=== PATIENT | female | born 1985 | race Caucasian/White ===

== ENCOUNTER 2019-07-02 00:48 | Day surgery (SDC) | payer OTHER, SELFPAY ==
[2019-06-27 13:55] VITALS: BMI 26.4
[2019-07-02 08:09] VITALS: BP 120/86; PULSE 75; RESP 18; TEMP 36.8; O2SAT 100
[2019-07-02] MEDS: LACTATED RINGERS 1,000 ML 150 ML IV CONT (08:14)
--- NOTE | 2019-07-02 08:21 | WPDANESEPPF ---
Anes - Initial Pre Proc Eval Procedure: Operation Date: 07/02/19 09:00 Proposed Procedures p Colonoscopy - Praful Allen MD Date/Time: 07/02/19 08:21 Surgeon: Praful Allen MD Pre Op Diagnosis: abd pain, rectal bleeding, hx of abn ct scan Patient Data Age: 33 Gender: F Height: 5 ft 5 in Weight: 77 kg Last Vital Signs Temp 36.8 C 07/02/19 08:09 Pulse 75 07/02/19 08:09 Resp 18 07/02/19 08:09 BP 120/86 07/02/19 08:09 Pulse Ox 100 07/02/19 08:09 Allergies Allergy/AdvReac Type Severity Reaction Status Date / Time Sulfa (Sulfonamide Allergy Unknown Verified 07/02/19 07:54 Antibiotics) Home Medications Medication Instructions Recorded Confirmed Type calcium carbonate [Calcium 500] 500 mg PO DAILY 06/27/19 07/02/19 History lamotrigine 50 mg PO DAILY 06/27/19 07/02/19 History Patient hx anesthesia problems: none Family hx anesthesia problems: none PMFSH Past Medical History Medical History Seizures Surgical History Surgical History No significant past surgical history Social History Social History Smoking status: Never smoker Anes - Eval Final PreProcedure Day of Procedure 07/02/19 08:21 Patient weight: overweight Heart: regular rate and rhythm Lungs: clear to auscultation Airway: Mallampati scale class II Neurological: alert and oriented Last oral intake: >/= 8 hours ASA classification: III Emergent: no Anesthetic plan: proceed Anesthesia type and monitoring: general GIVS and standard monitoring Informed Consent: The patient's anesthetic plan and its attendant risks and benefits were discussed with the patient/family/POA. Questions were solicited and answers provided to the satisfaction of the patient/family/POA.
--- NOTE | 2019-07-02 08:36 | P.CONGI_ITS ---
Assessment and Plan Additional Plan This is a 33-year-old white female patient seen in evaluation at the request of QUINCY Dhaliwal. Patient has chronic GERD. She reports frequent regurgitation, usually after reclining in the evening. She denies bleeding. no dysphagia, no weight loss. Symptoms present for several years, recent improvement with PPI for 2 months Family hx: noncontributary. 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 HEENT exam unremarkable. Lungs are clear to auscult ation and percussion. Heart is without murmur or extra sounds. Abdominal exam bowel sounds are present soft nontender with no organomegaly. Rectal exam deferred Today. impression 1. Chronic GE reflux disease. Plan is for anti-reflux measures. Proton pump inhibitor use such as omeprazole 20 mg p.o. daily is encouraged long-term. An EGD will be performed because of her ongoing chronic symptoms. GI Consult Note Consult date/time: 07/02/19 08:36 HPI: Robyn Gleason is a 33 year old female [facility] Past Medical History Medical History Seizures Surgical History Surgical History No significant past surgical history Social History Social History Smoking status: Never smoker Meds Home Medications and Allergies Home Medications Medication Instructions Recorded Confirmed Type calcium carbonate [Calcium 500] 500 mg PO DAILY 06/27/19 07/02/19 History lamotrigine 50 mg PO DAILY 06/27/19 07/02/19 History Allergies Allergy/AdvReac Type Severity Reaction Status Date / Time Sulfa (Sulfonamide Allergy Unknown Verified 07/02/19 07:54 Antibiotics) Vital Signs Vital Signs - 24 hr 07/02/19 08:09 Temperature 36.8 C Pulse Rate 75 Respiratory Rate 18 Blood Pressure 120/86 Pulse Oximetry 100
--- NOTE | 2019-07-02 08:48 | WPDGICN ---
Assessment and Plan Additional Plan This is a 33-year-old white female patient seen in evaluation at the request of Eleanor Walters. Patient complains of right mid abdominal pain. This occurs usually at night. Sometimes in the mid day. Not related to diet or activity. Pain seems to intensify prior to a bowel movement in mild relief subsequently. The pain persist despite this. She reports her bowel habits are regular and normal. She has formed stool. she did experience bright red blood per rectum 2 weeks ago that lasted for 2 days. Past medical history is significant for seizure disorder. Current medications include lamotrigine, calcium, allergy reported to sulfa medications. Physical exam reveals patient to be alert. Vital signs stable. HEENT exam unremarkable. Lungs are clear to auscultation and percussion. Heart is without murmur or extra sounds. Abdominal exam bowel sounds are present soft mildly tender in the right side today. She was diffusely tender in the office 1 week ago. Digital external rectal exam normal. Recent CT scan of the abdomen suggests thickening of the descending colon raising the question of colitis. Impression 1. Abdominal pain. Etiology unclear. Seems to be colon etiology. Plan is for colonoscopy. 2. Rectal bleeding. 3. Abnormal CT scan. Suspicious for descending colon colitis. Plan is for a trial of antibiotic Cipro 500 mg p.o. b.i.d. was tried with no change in her symptoms. Colonoscopy will be performed evaluate abnormalities pain and bleeding. GI Consult Note Consult date/time: 07/02/19 08:48 HPI: Robyn Gleason is a 33 year old female [facility] Past Medical History Medical History Seizures Surgical History Surgical History No significant past surgical history Social History Social History Smoking status: Never smoker Meds Home Medications and Allergies Home Medications Medication Instructions Recorded Confirmed Type calcium carbonate [Calcium 500] 500 mg PO DAILY 06/27/19 07/02/19 History lamotrigine 50 mg PO DAILY 06/27/19 07/02/19 History Allergies Allergy/AdvReac Type Severity Reaction Status Date / Time Sulfa (Sulfonamide Allergy Unknown Verified 07/02/19 07:54 Antibiotics) Vital Signs Vital Signs - 24 hr 07/02/19 08:09 Temperature 36.8 C Pulse Rate 75 Respiratory Rate 18 Blood Pressure 120/86 Pulse Oximetry 100
[2019-07-02 09:18] VITALS: BP 100/59; PULSE 84; RESP 18; O2SAT 100
[2019-07-02 09:28] VITALS: BP 123/61; PULSE 70; RESP 18; O2SAT 100
[2019-07-02 09:38] VITALS: BP 113/72; PULSE 72; RESP 18; O2SAT 100
== END 2019-07-02 10:05 | disposition home or self-care (01) ==
PROVIDERS: Visit Provider Internal Medicine Gastroenterology
PROC: 0DJD8ZZ Inspection of Lower Intestinal Tract, Via Natural or Artificial Opening Endoscopic (ICD-10-PCS; CPT 45378; principal; 2019-07-02 09:00)
DX: R10.84 Generalized abdominal pain (principal); K64.8 Other hemorrhoids; G40.909 Epilepsy, unspecified, not intractable, without status epilepticus
CPT/HCPCS: 45378; J2704; J7120

== ENCOUNTER 2021-05-11 11:16 | Outpatient (CLI) | payer OTHER, SELFPAY ==
[2021-05-11 12:19] LABS: Beta HCG Quantitative < 2.39 mIU/ML
== END 2021-05-11 11:17 | disposition home or self-care (01) ==
PROVIDERS: PCP Physician Assistant Medical; Visit Provider Obstetrics & Gynecology Gynecology
DX: Z31.49 Encounter for other procreative investigation and testing (principal)
CPT/HCPCS: 36415; 84702

== ENCOUNTER 2021-05-14 11:46 | Outpatient (CLI) | payer OTHER, SELFPAY ==
--- NOTE | ~2021-05-14 | XR_ITS ---
EXAMINATION: XR hysterosalpingogram EXAM DATE: 05/14/2021 12:36 INDICATION: Infertility. TECHNIQUE: Hysterosalpingogram was performed by Dr. Teena Verde MD with fluoroscopic bishop olivera. Radiologist Yoel Gamez M.D. was present to obtain fluoroscopic images. Pulsed dose reduction fl uoroscopy was used with fluoroscopic time of 0.1. The DAP for this procedure was 0.8 Gycm2. A total of 9 images obtained for the exam. FINDINGS: Furnace Brazer radiograph demonstrates an unremarkable pelvis. Fluoroscopic images demonstrates nor mal appearing endometrial cavity which has been cannulated. Upon injection of contrast, both fallopi an tubes opacify and are normal in appearance. There is free spillage bilaterally. Uterus is withou t evidence of synechia. IMPRESSION: Patent fallopian tubes. Reviewed, dictated and finalized at location A. R EDITOR IMPRESSION: Patent fallopian tubes.
== END 2021-05-14 11:47 | disposition home or self-care (01) ==
PROVIDERS: PCP Physician Assistant Medical; Visit Provider Obstetrics & Gynecology Gynecology
DX: Z31.49 Encounter for other procreative investigation and testing (principal)
CPT/HCPCS: 58340; 74740; Q9966

== ENCOUNTER 2022-05-08 22:04 | Emergency (ER) | payer OTHER, SELFPAY ==
[2022-05-08 22:06] VITALS: BP 148/87; PULSE 72; RESP 17; TEMP 36.7; O2SAT 97
[2022-05-08 22:37] LABS: Basophils Absolute Auto 0.1 K/mm3 (0.0-0.1); Basophils Percent Auto 0.4 % (0.2-1.2); Eosinophils Absolute Auto 0.1 K/mm3 (0-0.3); Eosinophils Percent Auto 0.5 % (0-4.4); Hematocrit 40.4 % (37.0-47.0); Hemoglobin 13.6 g/dL (12.0-15.0); Immature Granulocyte Absolute 0.05 K/mm3 (0.00-0.031); Immature Granulocyte Percent A 0.4 % (0-0.5); Lymphocytes Absolute Auto 3.14 K/mm3 (0.9-3.2); Lymphocytes Percent Auto 25.4 % (18.3-44.2); Mean Corpuscular HGB Conc 33.7 g/dl (32-36); Mean Corpuscular Hemoglobin 29.1 pg (26-34); Mean Corpuscular Volume 86.5 fl (80-100); Mean Platelet Volume 9.4 fl (7.4-10.4); Monocytes Absolute Auto 0.7 K/mm3 (0.1-0.6); Monocytes Percent Auto 5.9 % (2.6-8.5); Neutrophils Absolute Auto 8.3 K/mm3 (1.3-6.7); Neutrophils Percent Auto 67.4 % (45.5-73.1); Platelet Count Result 345 k/mm3 (150-375); Red Blood Count 4.67 M/mm3 (4.2-5.4); Red Cell Distribution Width 12.9 % (11.5-14.5); White Blood Count 12.4 K/mm3 (4.5-10.0)
[2022-05-08 22:50] LABS: Alanine Aminotransferase 47 U/L (6-35); Albumin Level 4.7 g/dL (3.5-5.1); Alkaline Phosphatase 89 U/L (38-126); Anion Gap 8 mmol/L (8-16); Aspartate Amino Transferase 36 U/L (14-36); Bilirubin,Total 0.7 mg/dL (0.2-1.3); Blood Urea Nitrogen 9 mg/dL (7-17); Calcium 8.6 mg/dL (8.4-10.2); Carbon Dioxide 27 mmol/L (22-30); Chloride 99 mmol/L (98-107); Estimated CRCL calculation 118 ml/min; Estimated Glomerular Filt Rate > 60; Glucose 97 mg/dL (65-110); Lipase 46 U/L (23-300); Potassium 3.7 mmol/L (3.4-5.0); Sodium 134 mmol/L (137-145)
[2022-05-08] MEDS: DICYCLOMINE HCL INJ 20 MG/2 ML VIAL IM (23:51)
[2022-05-08] MEDS: ONDANSETRON INJ 4 MG/2 ML VIAL IV PUSH (23:51)
[2022-05-08] MEDS: SODIUM CHLORIDE 0.9% IV 1,000 ML 999 ML IV CONT (23:57)
[2022-05-09 00:14] LABS: Appearance Urine Clear (Clear); Bilirubin Urine Negative (Negative); Blood Urine Negative (Negative); Color Urine Yellow (Yellow); Glucose Urine UA Negative (Negative); Ketones Urine Trace mg/dL (Negative); Leukocyte Esterase Ur Negative LEU/UL (Negative); Nitrate Urine Negative (Negative); Protein Urine Negative (Negative); Specific Grav Ur 1.015 (1.001-1.035); Urobilinogen Urine 0.2 mg/dL (<2.0)
--- NOTE | 2022-05-09 00:24 | ED.ABDPAIN ---
HPI - Abdominal Pain General Chief Complaint: Abdominal Pain Stated Complaint: abdominal pain Time Seen by Provider: 05/08/22 23:28 History of Present Illness HPI narrative: 36-year-old female presents the emergency room with gradual onset of right-sided abdominal pain that radiated to her lower back. States pain began at 10:00 this morning and is progressively gotten worse. Began experiencing nausea and vomiting several hours later. Was unable to keep ibuprofen down. Denies any diarrhea or constipation. Denies fevers. Denies dysuria. Related Data Allergies Allergy/AdvReac Type Severity Reaction Status Date / Time Sulfa (Sulfonamide Allergy Unknown rash Verified 05/08/22 22:10 Antibiotics) Review of Systems Review of Systems: CONSTITUTIONAL: Denies fever, chills, or sweats. EYES: Denies visual changes, redness, or discharge. ENT: Denies rhinorrhea, congestion, sore throat, or otalgia. CARDIOVASCULAR: Denies chest pain, palpitations, or edema. RESPIRATORY: Denies cough or dyspnea. GASTROINTESTINAL: Reports abdominal pain, nausea, and vomiting GENITOURINARY: Denies dysuria or hematuria. SKIN: Denies rash or itching. MUSCULOSKELETAL: Denies back pain, joint pain, or myalgia. NEUROLOGIC: Denies headache, numbness, dizziness, or weakness. PSYCHIATRIC: Denies anxiety or depression. PMFSH Past Medical History Medical History Diarrhea Obese Right lower quadrant pain Seizures Surgical History Surgical History No significant past surgical history Social History Social History Smoking status: Never smoker Exam Narrative: GENERAL: Well-appearing, well-nourished, no physical limitations, and in no acute distress. HEAD: Normocephalic, atraumatic. EYES: Conjunctivae normal, PERRLA and EOMI. CHEST: Clear to auscultation. No respiratory distress. No wheezes rales or rhonchi. HEART: Regular rate and rhythm. No murmur heard. Normal peripheral pulses. ABDOMEN: Soft, right-sided tenderness, nondistended, normal active bowel sounds. Negative heel strike. Negative psoas and obturator signs BACK: No CVA tenderness; No cervical/thoracic/lumbar tenderness, step-offs, bony abnormality; FROM EXTREMITIES: Normal range of motion. No edema. No clubbing or cyanosis SKIN: Warm, dry, no rash. No noted wounds NEURO: No focal deficits. Alert and oriented x3. MAEW. CN's II-XI intact bilaterally, normal gait PSYCH: Cooperative. Normal mood and affect. Course Vital Signs Vital signs: Vital Signs Temperature 36.7 C 05/08/22 22:06 Pulse Rate 72 05/08/22 22:06 Respiratory Rate 17 05/08/22 22:06 Blood Pressure 148/87 H 05/08/22 22:06 Pulse Oximetry 97 05/08/22 22:06 Oxygen Delivery Room Air 05/08/22 22:06 Temperature 36.7 C 05/08/22 22:06 Pulse Rate 72 05/08/22 22:06 Respiratory Rate 17 05/08/22 22:06 Blood Pressure 148/87 H 05/08/22 22:06 Pulse Oximetry 97 05/08/22 22:06 Oxygen Delivery Room Air 05/08/22 22:06 MDM - Abdominal Pain Lab Data 05/08/22 22:14 05/08/22 22:14 Labs: Lab Results 05/08/22 05/08/22 05/08/22 Range/Units 22:14 22:14 23:58 WBC 12.4 H (4.5-10.0) K/mm3 RBC 4.67 (4.2-5.4) M/mm3 Hgb 13.6 (12.0-15.0) g/dL Hct 40.4 (37.0-47.0) % MCV 86.5 (80-100) fl MCH 29.1 (26-34) pg MCHC 33.7 (32-36) g/dl RDW 12.9 (11.5-14.5) % Plt Count 345 (150-375) k/mm3 MPV 9.4 (7.4-10.4) fl Immature Gran % (Auto) 0.4 (0-0.5) % Neut % (Auto) 67.4 (45.5-73.1) % Lymph % (Auto) 25.4 (18.3-44.2) % [place] % (Auto) 5.9 (2.6-8.5) % Eos % (Auto) 0.5 (0-4.4) % Baso % (Auto) 0.4 (0.2-1.2) % Lymph # (Auto) 3.14 (0.9-3.2) K/mm3 [place] # (Auto) 0.7 H (0.1-0.6) K/mm3 Eos # (Auto) 0.1 (0-0.3) K/mm3 Baso # (Auto) 0.1
[2022-05-09 00:31] VITALS: BP 125/75
[2022-05-09 00:31] LABS: Bacteria Urine Trace /hpf; Mucus Urine Rare /lpf; RBC Urine 0-2 /hpf (0-2); Squamous Epithelial Cell Urine Many /hpf (Few); WBC Urine 0-3 /hpf
[2022-05-09 00:36] VITALS: PULSE 79; RESP 14; O2SAT 100
[2022-05-09 00:50] LABS: Add Urine Microscopic? YES
== END 2022-05-09 00:37 | disposition home or self-care (01) ==
PROVIDERS: Emergency Medicine; Emergency Provider Nurse Practitioner Family; PCP Physician Assistant Medical
DX: K52.9 Noninfective gastroenteritis and colitis, unspecified (principal); E66.9 Obesity, unspecified; Z68.29 Body mass index [BMI] 29.0-29.9, adult
CPT/HCPCS: 36415; 80053; 81001; 81025; 83690; 85025; 96361; 96372; 96374; 99284; J0500; J2405; J7030

== ENCOUNTER → 2023-06-09 08:16 | Outpatient (CLI) | payer OTHER, SELFPAY ==
--- NOTE | ~2023-06-09 | US_ITS ---
EXAMINATION: US OB <= 14 weeks fetus DATE: 06/09/2023 08:48 INDICATION: First trimester viability assessment TECHNIQUE: Real-time pelvic transabdominal and transvaginal ultrasound was performed. COMPARISON: None. FINDINGS: The uterus measures 12.5 x 7.1 x 9.7 cm. There is an intrauterine gestational sac. A yolk s ac is identified. heart motion is identified measuring 162 beats per minute (bpm) by M-mode Dop pler. The crown rump length measures 6 cm, which correlates with an estimated gestational age o f 12 weeks and 4 day(s) (+/-) 8 day(s). The ovaries are not visualized however no adnexal abnormality is seen. There is no free fluid in the pelvis. IMPRESSION: 1. Live intrauterine with an estimated gestational age of 12 weeks and 4 day(s) (+/-) 8 day (s) and an estimated delivery date of 12/18/2023. Reviewed, dictated and finalized at location B. SERVICE INSTRUCTOR IMPRESSION: 1. Live intrauterine with an estimated gestational age of 12 weeks an d 4 day(s) (+/-) 8 day(s) and an estimated delivery date of 12/18/2023.
== END ==
PROVIDERS: PCP Advanced Practice Midwife; Visit Provider Advanced Practice Midwife
DX: O36.80X0 Pregnancy with inconclusive fetal viability, not applicable or unspecified (principal); Z3A.00 Weeks of gestation of pregnancy not specified
CPT/HCPCS: 76801

== ENCOUNTER 2023-11-25 10:51 | Observation (INO) | payer OTHER, SELFPAY ==
[2023-11-25 11:12] VITALS: BP 124/78; PULSE 106
[2023-11-25 11:30] VITALS: BP 112/87; PULSE 101
[2023-11-25 11:33] VITALS: BMI 38.5
--- NOTE | 2023-11-25 11:34 | OBADM ---
This patient, Robyn Rios, admitted to the OB room OB Post 116 for observation. Patient/family oriented to hospital policies and general routines including ID bracelet, bed and alarms, visiting hours, pain management, procedures, bathroom and other care routines, personal items, smoking policy, room service/diet, and visiting hours. Patient/Family are encouraged to report perceived risks to care and to ask questions if they do not understand what they are told or what they should do.
[2023-11-25 11:38] LABS: Add Urine Microscopic? YES; Appearance Urine Cloudy (Clear); Bacteria Urine 1+ /hpf; Bilirubin Urine Negative (Negative); Blood Urine Negative (Negative); Color Urine Yellow (Yellow); Glucose Urine UA Negative (Negative); Ketones Urine Trace mg/dL (Negative); Leukocyte Esterase Ur Negative LEU/UL (Negative); Nitrate Urine Negative (Negative); Non Pathogenic Casts 0-2; Protein Urine Trace mg/dL (Negative); RBC Urine 0-2 /hpf (0-2); Specific Grav Ur 1.018 (1.001-1.035); Squamous Epithelial Cell Urine Moderate /hpf (Few); Urobilinogen Urine 0.2 mg/dL (<2.0); WBC Urine 0-5 /hpf (0-3); pH Urine 6.5 (5.0-9.0)
[2023-11-25 12:00] VITALS: BP 124/74; PULSE 92
--- NOTE | 2023-12-04 14:12 | P.PNOB_ITS ---
OB - Triage/Final Diagnosis Visit Information Date of evaluation: 11/25/23 Reason for evaluation: other (abdominal pain) Comments/Additional reasons for admission: I have assessed the risk for this patient, Robyn Rios, and determined that she would benefit from observation care. Evaluation Laboratory results: Laboratory Tests 11/25/23 11:25 Urine Color Yellow Urine Appearance Cloudy H Urine pH 6.5 Ur Specific [place] 1.018 Urine Protein Trace Urine Glucose (UA) Negative Urine Ketones Trace H Ur Blood (Man) Negative Urine Nitrate Negative Urine Bilirubin Negative Urine Urobilinogen 0.2 Leukocyte Esterase Rfl Negative Urine RBC 0-2 Urine WBC 0-5 Ur Squamous Epith Cells Moderate Urine Bacteria 1+ H Urine Casts 0-2
== END 2023-11-25 12:20 | disposition home or self-care (01) ==
PROVIDERS: Admitting Provider Obstetrics & Gynecology Gynecology; Visit Provider Obstetrics & Gynecology Gynecology
DX: O26.899 Other specified pregnancy related conditions, unspecified trimester (principal); R10.9 Unspecified abdominal pain
CPT/HCPCS: 81001; G0378; G0379

== ENCOUNTER 2023-11-27 10:25 | Outpatient (RCR) | payer OTHER, SELFPAY ==
[2023-10-03 17:36] VITALS: BP 135/75; PULSE 80
[2023-10-06 09:54] VITALS: BP 124/72; PULSE 84
[2023-10-09 12:27] VITALS: BP 130/75; PULSE 86
[2023-10-12 10:27] VITALS: BP 117/65; PULSE 91
[2023-10-17 09:50] LABS: Hematocrit 35.6 % (37.0-47.0); Hemoglobin 11.8 g/dL (12.0-15.0); Mean Corpuscular HGB Conc 33.1 g/dl (32-36); Mean Corpuscular Hemoglobin 30.4 pg (26-34); Mean Corpuscular Volume 91.8 fl (80-100); Mean Platelet Volume 10.1 fl (7.4-10.4); Platelet Count Result 254 k/mm3 (150-375); Red Blood Count 3.88 M/mm3 (4.2-5.4); Red Cell Distribution Width 14.1 % (11.5-14.5); White Blood Count 10.7 K/mm3 (4.5-10.0)
[2023-10-17 10:05] LABS: Alanine Aminotransferase 15 U/L (6-35); Albumin Level 3.6 g/dL (3.5-5.1); Alkaline Phosphatase 98 U/L (38-126); Anion Gap 6 mmol/L (4-12); Aspartate Amino Transferase 19 U/L (14-36); Bilirubin,Total 0.6 mg/dL (0.2-1.3); Blood Urea Nitrogen 5 mg/dL (7-17); Calcium 9.1 mg/dL (8.4-10.2); Carbon Dioxide 25 mmol/L (22-30); Chloride 106 mmol/L (98-107); Estimated Glomerular Filt Rate > 60; Glucose 122 mg/dL (65-110); Potassium 4.4 mmol/L (3.4-5.0); Sodium 137 mmol/L (137-145)
[2023-10-17 11:47] VITALS: BP 126/65; PULSE 91
[2023-10-20 09:58] VITALS: BP 120/78; PULSE 81
[2023-10-23 10:54] VITALS: BP 111/68; PULSE 85
[2023-10-26 11:17] VITALS: BP 116/71; PULSE 92
[2023-10-30 11:57] VITALS: BP 120/77; PULSE 96
[2023-11-02 10:36] VITALS: BP 120/68; PULSE 97
[2023-11-06 11:09] VITALS: BP 129/88; PULSE 98
[2023-11-09 10:20] VITALS: BP 130/72; PULSE 95
[2023-11-13 10:10] VITALS: BP 119/64; PULSE 95
[2023-11-16 10:33] LABS: Basophils Percent Auto 0.3 % (0.2-1.2); Eosinophils Absolute Auto 0.1 K/mm3 (0-0.3); Eosinophils Percent Auto 0.9 % (0-4.4); Hematocrit 35.9 % (37.0-47.0); Hemoglobin 11.9 g/dL (12.0-15.0); Lymphocytes Absolute Auto 2.41 K/mm3 (0.9-3.2); Lymphocytes Percent Auto 24.1 % (18.3-44.2); Mean Corpuscular HGB Conc 33.1 g/dl (32-36); Mean Corpuscular Hemoglobin 30.4 pg (26-34); Mean Corpuscular Volume 91.8 fl (80-100); Mean Platelet Volume 10.1 fl (7.4-10.4); Monocytes Absolute Auto 0.9 K/mm3 (0.1-0.6); Monocytes Percent Auto 8.5 % (2.6-8.5); Neutrophils Absolute Auto 6.5 K/mm3 (1.3-6.7); Neutrophils Percent Auto 65.2 % (45.5-73.1); Platelet Count Result 245 k/mm3 (150-375); Red Blood Count 3.91 M/mm3 (4.2-5.4); Red Cell Distribution Width 13.9 % (11.5-14.5)
[2023-11-16 10:52] LABS: Alanine Aminotransferase 13 U/L (6-35); Albumin Level 3.5 g/dL (3.5-5.1); Alkaline Phosphatase 105 U/L (38-126); Anion Gap 9 mmol/L (4-12); Aspartate Amino Transferase 16 U/L (14-36); Bilirubin,Total 0.4 mg/dL (0.2-1.3); Blood Urea Nitrogen 6 mg/dL (7-17); Carbon Dioxide 21 mmol/L (22-30); Chloride 105 mmol/L (98-107); Estimated Glomerular Filt Rate > 60; Glucose 107 mg/dL (65-110); Potassium 3.9 mmol/L (3.4-5.0); Sodium 135 mmol/L (137-145); Uric Acid 3.8 mg/dL (2.5-7.5)
[2023-11-16 11:45] VITALS: BP 118/67; PULSE 96
[2023-11-20 13:50] VITALS: BP 123/73; PULSE 99
[2023-11-23 11:01] VITALS: BP 121/70; PULSE 90
--- NOTE | ~2023-11-27 | US_ITS ---
EXAMINATION: US OB BPP wo non-stress DATE: 10/23/2023 11:41 INDICATION: Preeclampsia during third trimester TECHNIQUE: Real-time pelvic ultrasound was performed. The interpreting radiologist was not present fo r the study. COMPARISON: None. FINDINGS: There is a single living fetus in vertex presentation. The placenta is posteriorly and not low-lying . heart rate is 148 beats per minute (bpm). Amniotic fluid volume is subjectively normal with n ormal deepest vertical pocket measuring 6.9 cm. Biophysical profile performed by the technologist: breathing (30 sec sustained breathing in 30 minutes): 2 out of 2 movement (3 gross body movements in 30 minutes): 2 out of 2 tone (one episode of fafdpvb-ukqucmpxb-zjsiemr limb movement): 2 out of 2 Amniotic fluid pocket (2 cm): 2 out of 2 Total score: 8 out of 8 IMPRESSION: 1. Single living fetus in vertex presentation with heart rate of 148 bpm. 2. Biophysical profile 8 out of 8. Reviewed, dictated and finalized at location A.
--- NOTE | ~2023-11-27 | US_ITS ---
LIMITED OBSTETRIC ULTRASOUND/BIOPHYSICAL PROFILE Ordering provider: Tammy Roberts CNM History: . preeclampsia . Comparison: None. FINDINGS: PRESENTATION: Vertex. Longitudinal lie. PLACENTAL LOCATION: Posterior right No previa. HEART RATE: 147 bpm (normal is between 110 to 160 bpm). AMNIOTIC FLUID INDEX: Normal. Largest vertical pocket is 10 cm. SCORE: breathing movements: 2 movements: 2 tone: 2 Amniotic fluid volume: 2 Total: 8 IMPRESSION: Normal biophysical profile. Reviewed, dictated and finalized at location A. IMPRESSION: Normal biophysical profile.
--- NOTE | ~2023-11-27 | US_ITS ---
EXAMINATION: US OB BPP wo non-stress DATE: 11/06/2023 11:56 INDICATION: Preeclampsia during third trimester TECHNIQUE: Real-time pelvic ultrasound was performed. The interpreting radiologist was not present fo r the study. COMPARISON: None. FINDINGS: There is a single living fetus in vertex presentation. The placenta is posterior. heart rate i s 135 beats per minute (bpm). Amniotic fluid volume is subjectively normal with normal deepest vertic al pocket of 7.0 cm Biophysical profile performed by the technologist: breathing (30 sec sustained breathing in 30 minutes): 2 out of 2 movement (3 gross body movements in 30 minutes): 2 out of 2 tone (one episode of ojwllao-xsxauxaop-bzxnjqx limb movement): 2 out of 2 Amniotic fluid pocket (2 cm): 2 out of 2 Total score: 8 out of 8 IMPRESSION: 1. Single living fetus in vertex presentation with heart rate of 135 bpm. 2. Biophysical profile 8 out of 8. Reviewed, dictated and finalized at location A.
--- NOTE | ~2023-11-27 | US_ITS ---
EXAMINATION: US OB limited w BPP DATE: 10/17/2023 10:46 INDICATION: Preeclampsia during third trimester TECHNIQUE: Real-time pelvic ultrasound was performed. The interpreting radiologist was not present fo r the study. COMPARISON: None. FINDINGS: There is a single living fetus in vertex presentation. The placenta is posterior. heart rate i s 146 beats per minute (bpm). Amniotic fluid index is 12.7 cm which is normal (5th%-95%: 8.8-23.8 cm at 21 weeks estimated gestational age) Biophysical profile performed by the technologist: breathing (30 sec sustained breathing in 30 minutes): 2 out of 2 movement (3 gross body movements in 30 minutes): 2 out of 2 tone (one episode of tsngqxy-dktolzccr-trpufcv limb movement): 2 out of 2 Amniotic fluid pocket (2 cm): 2 out of 2 Total score: 8 out of 8 IMPRESSION: 1. Single living fetus in vertex presentation with heart rate of 146 bpm. 2. Biophysical profile 8 out of 8. 3. Normal amniotic fluid index of 12.7 cm. Reviewed, dictated and finalized at location B.
--- NOTE | ~2023-11-27 | US_ITS ---
EXAMINATION: US OB BPP wo non-stress DATE: 10/30/2023 12:00 INDICATION: Biophysical profile for preeclampsia TECHNIQUE: Real-time pelvic ultrasound was performed. The interpreting radiologist was not present fo r the study. COMPARISON: None. FINDINGS: There is a single living fetus in vertex presentation. The placenta is posterior and not low-lying. heart rate is 137 beats per minute (bpm). Amniotic fluid volume is subjectively normal with nor mal post vertical pocket measuring 7.5 cm. Biophysical profile performed by the technologist: breathing (30 sec sustained breathing in 30 minutes): 2 out of 2 movement (3 gross body movements in 30 minutes): 2 out of 2 tone (one episode of nuzfthb-zuspoctwl-esbvgvh limb movement): 2 out of 2 Amniotic fluid pocket (2 cm): 2 out of 2 Total score: 8 out of 8 IMPRESSION: 1. Single living fetus in vertex presentation with heart rate of 137 bpm. 2. Biophysical profile 8 out of 8. Reviewed, dictated and finalized at location A.
--- NOTE | ~2023-11-27 | US_ITS ---
EXAMINATION: US OB BPP wo non-stress DATE: 10/09/2023 12:03 INDICATION: Preeclampsia. Third trimester. TECHNIQUE: Real-time pelvic ultrasound was performed. COMPARISON: Ultrasound 10/03/2023 FINDINGS: There is a single living fetus in vertex presentation. The placenta is posterior. heart rate i s 144 beats per minute (bpm). The deepest vertical pocket is 8.3 cm, which is normal. Biophysical profile performed by the technologist: breathing (30 sec sustained breathing in 30 minutes): 2 out of 2 movement (3 gross body movements in 30 minutes): 2 out of 2 tone (one episode of vexmayz-zmnncmzqx-inyphpm limb movement): 2 out of 2 Amniotic fluid pocket (2 cm): 2 out of 2 Total score: 8 out of 8 IMPRESSION: 1. Single living fetus in vertex presentation. 2. Biophysical profile 8 out of 8. Reviewed, dictated and finalized at location A.
--- NOTE | ~2023-11-27 | US_ITS ---
EXAMINATION: US OB BPP wo non-stress DATE: 10/03/2023 18:04 INDICATION: BPP, Pre-eclampsia . TECHNIQUE: Real-time ultrasound of the pelvis was performed. COMPARISON: 06/09/2023 FINDINGS: There is a single living fetus in vertex presentation, longitudinal lie. The placenta is posterior, well distant from the cervix. heart rate is 146 bpm. The deepest vertical pocket measures 6.9 c m. Biophysical profile performed by the technologist: breathing (30 sec sustained breathing in 30 minutes): 2 out of 2. movement (3 gross body movements in 30 minutes: 2 out of 2. tone (one episode of ioftevl-tniarrnhi-mpsedbx limb movement): 2 out of 2. Amniotic fluid pocket (2 cm): 2 out of 2. Total score: 8 out of 8. IMPRESSION: Single living fetus in vertex presentation. Biophysical profile 8 out of 8. Reviewed, dictated and finalized at location K.
[2023-11-27 10:56] VITALS: BP 129/79; PULSE 96
== END 2023-12-05 13:30 | disposition home or self-care (01) ==
LOC: ANHOBOP 10:25
PROVIDERS: Advanced Practice Midwife; Visit Provider Obstetrics & Gynecology Gynecology
DX: O14.92 Unspecified pre-eclampsia, second trimester (principal); Z3A.28 28 weeks gestation of pregnancy; Z3A.29 29 weeks gestation of pregnancy; Z3A.30 30 weeks gestation of pregnancy; Z3A.31 31 weeks gestation of pregnancy; Z3A.32 32 weeks gestation of pregnancy; Z3A.33 33 weeks gestation of pregnancy; Z3A.34 34 weeks gestation of pregnancy; Z3A.35 35 weeks gestation of pregnancy; Z3A.36 36 weeks gestation of pregnancy
CPT/HCPCS: 36415; 59025; 76815; 76819; 80053; 84550; 85025; 85027; J2274

== ENCOUNTER 2023-11-29 15:53 | Inpatient (IN) | payer OTHER, SELFPAY ==
[2023-11-29] VITALS (33 sets, daily range): BP systolic 94–146; BP diastolic 61–102; PULSE 86–117; TEMP 36.2–36.8
[2023-11-29 17:10] LABS: Basophils Percent Auto 0.2 % (0.2-1.2); Eosinophils Absolute Auto 0.1 K/mm3 (0-0.3); Eosinophils Percent Auto 0.7 % (0-4.4); Hematocrit 37.2 % (37.0-47.0); Hemoglobin 12.5 g/dL (12.0-15.0); Immature Granulocyte Absolute 0.07 K/mm3 (0.00-0.031); Immature Granulocyte Percent A 0.7 % (0-0.5); Lymphocytes Absolute Auto 2.84 K/mm3 (0.9-3.2); Lymphocytes Percent Auto 29.5 % (18.3-44.2); Mean Corpuscular HGB Conc 33.6 g/dl (32-36); Mean Corpuscular Hemoglobin 30.2 pg (26-34); Mean Corpuscular Volume 89.9 fl (80-100); Mean Platelet Volume 10.2 fl (7.4-10.4); Monocytes Absolute Auto 0.8 K/mm3 (0.1-0.6); Monocytes Percent Auto 8.7 % (2.6-8.5); Neutrophils Absolute Auto 5.8 K/mm3 (1.3-6.7); Neutrophils Percent Auto 60.2 % (45.5-73.1); Platelet Count Result 265 k/mm3 (150-375); Red Blood Count 4.14 M/mm3 (4.2-5.4); Red Cell Distribution Width 13.7 % (11.5-14.5); White Blood Count 9.6 K/mm3 (4.5-10.0)
--- NOTE | 2023-11-29 17:25 | WPDANESEPP ---
Anes - Eval Pre Procedure Procedure: labor epidural Date/Time: 11/29/23 17:25 Surgeon: diana Preop Diagnosis: pain during labor Pre Op Diagnosis: Induction of Labor Patient Data Age: 38 Gender: F Height: Weight: Last Vital Signs Pulse 94 11/29/23 17:15 BP 130/80 11/29/23 17:15 O2 Del Method Room Air 11/29/23 16:46 Allergies Allergy/AdvReac Type Severity Reaction Status Date / Time Sulfa (Sulfonamide Allergy Unknown rash Verified 10/23/23 10:19 Antibiotics) Home Medications Medication Instructions Recorded Confirmed Type aspirin 81 mg capsule 81 mg PO DAILY 10/12/23 11/25/23 History cholecalciferol (vitamin D3) 125 125 mcg PO DAILY 10/12/23 11/25/23 History mcg (5,000 unit) tablet (Vitamin D3) levomefolate calcium 7.5 mg tablet 1 mg PO DAILY 10/12/23 11/25/23 History (L-Methylfolate) levothyroxine 50 mcg tablet 50 mcg PO DAILY 10/12/23 11/25/23 History magnesium 250 mg tablet 250 mg PO DAILY 10/12/23 11/25/23 History mecobalamin (vitamin B12) 1,000 1,000 mcg PO DAILY 10/12/23 11/25/23 History mcg chewable tablet vit no.95-ferrous 1 tablet PO DAILY 10/12/23 11/25/23 History fumarate 28 mg-folic acid 800 mcg tablet () vitamin B complex 1 tablet PO DAILY 10/12/23 11/25/23 History Laboratory Tests 11/29/23 16:57 WBC 9.6 K/mm3 (4.5-10.0) RBC 4.14 L M/mm3 (4.2-5.4) Hgb 12.5 g/dL (12.0-15.0) Hct 37.2 % (37.0-47.0) MCV 89.9 fl (80-100) MCH 30.2 pg (26-34) MCHC 33.6 g/dl (32-36) RDW 13.7 % (11.5-14.5) Plt Count 265 k/mm3 (150-375) MPV 10.2 fl (7.4-10.4) Immature Gran % (Auto) 0.7 H % (0-0.5) Neut % (Auto) 60.2 % (45.5-73.1) Lymph % (Auto) 29.5 % (18.3-44.2) [place] % (Auto) 8.7 H % (2.6-8.5) Eos % (Auto) 0.7 % (0-4.4) Baso % (Auto) 0.2 % (0.2-1.2) Lymph # (Auto) 2.84 K/mm3 (0.9-3.2) [place] # (Auto) 0.8 H K/mm3 (0.1-0.6) Eos # (Auto) 0.1 K/mm3 (0-0.3) Baso # (Auto) 0.0 K/mm3 (0.0-0.1) Abs Immat Gran (auto) 0.07 H K/mm3 (0.00-0.031) Absolute Neuts (auto) 5.8 K/mm3 (1.3-6.7) Absolute Nucleated RBC 0.000 K/mm3 (0.0-0.012) Nucleated RBC % 0.0 % (0.0-0.2) RPR Pending HIV 1&2 Ab/P24 Ag 4thGn Pending Blood Type Pending Antibody Screen Pending Patient hx anesthesia problems: none Family hx anesthesia problems: none Results Review: All pre-operative results and documents have been reviewed as part of the pre-operative evaluation. [facility] Past Medical History Medical History (Updated 11/29/23 @ 17:26 by Tamia Panchal CRNA) Diarrhea MTHFR gene mutation Obese Right lower quadrant pain Seizures Surgical History Surgical History No significant past surgical history Family History Family History (Updated 11/20/23 @ 13:39 by Leticia Shine RN) Father Hypertension Hypothyroid Mother Hypertension Mother Cerebrovascular accident Grandparent Dementia Social History Social History Smoking status: Never smoker Second hand tobacco smoke exposure: No Do You Feel Safe in your Home?: Yes Lack of Transportation: No Lack of Food: Never True Current Housing: I Have Housing Concerned About Future Housing: No Difficulty Paying Gas/Electric Bills: No Difficulty Paying for Meds: No Currently Unemployed: No Education: Bachelor's Degree Difficulty w/ Childcare or Family Care: No Spiritual care concerns: No Exam Day of Procedure 11/29/23 17:25
[2023-11-29] MEDS: miSOPROStol 25 MCG TABLET BUCCAL (17:34)
[2023-11-29 18:00] LABS: HIV 1/2 Ab P24 Ag Result Negative (Negative)
[2023-11-29 21:05] LABS: Rapid Plasma Reagin Non-Reactive (NonReactive)
[2023-11-29] MEDS: miSOPROStol 25 MCG TABLET 50 MCG BUCCAL (21:45)
[2023-11-29] MEDS: CALCIUM CARBONATE (TUMS) 500 MG (200 MG ELEMENTAL) PO (22:36)
[2023-11-30] VITALS (287 sets, daily range): BP systolic 90–208; BP diastolic 37–187; PULSE 25–165; TEMP 36.4–37.1; O2SAT 46–100; BMI 38.6
[2023-11-30] MEDS: ONDANSETRON INJ 4 MG/2 ML VIAL IV PUSH ×4 (00:44→18:49)
[2023-11-30] MEDS: miSOPROStol 25 MCG TABLET 50 MCG BUCCAL ×2 (01:53→20:09)
[2023-11-30] MEDS: fentaNYL CITRATE INJ (*CRX) 100 MCG/2 ML VIAL 50 MCG IV PUSH ×2 (07:23→12:29)
[2023-11-30] MEDS: DINOPROSTONE 10 MG VAG INSERT VAGINAL (07:30)
--- NOTE | 2023-11-30 07:54 | WPDOBADMIT ---
Obstetrics - Admit Note Admission Note: record reviewed. No pertinent additions to the history and/or any subsequent changes in the physical findings that are not consistent with the expected course of the were found. Additions to the history and/or subsequent changes in the physical findings follow. None.
--- NOTE | 2023-11-30 07:55 | PM.OBPNLAB ---
Pain Control Date/time seen: 11/30/23 07:55 Pain control: tolerating well Comments: Feeling increasing amount of back pain Pelvic Exam Comments: Closed, long per RN exam Contractions Monitor mode: External Contraction frequency: 2 (1.5-4) Contraction pattern: Irregular Contraction phase: Contraction Status status: Category ll Comments: Reassured by moderate variability and accelerations Assessment and Plan Assessment: induction ongoing Plan: continuous present management Comments: No cervical change with cytotec despite increasing contraction pattern. Cervidil placed. Plan of care discussed with pt. Pt worried about baby still being vertex. Limited bedside US performed. Fetus vertex. BPs normal to mild range. No severe features. Encouraged positions to allow for rotation. Dr. Verde updated.
[2023-11-30] MEDS: FAMOTIDINE 10 MG TABLET PO (08:58)
[2023-11-30] MEDS: hydrOXYzine HCL 25 MG TABLET PO ×3 (08:58→20:43)
--- NOTE | 2023-11-30 17:15 | PM.OBPNLAB ---
Pain Control Date/time seen: 11/30/23 17:00 Pain control: tolerating well Comments: Still feeling back pain but now having lower abdominal cramping with contractions. Pelvic Exam Effacement (%): 50 station: -4 Amniotic membrane status: Intact Comments: Soft, posterior. Unable to advance through internal os due to posterior location of cervix and pt discomfort. Contractions Monitor mode: External Contraction frequency: 2 (1.5-5) Contraction pattern: Irregular (some coupling) Contraction phase: Contraction Status status: Category l Assessment and Plan Assessment: induction ongoing Plan: continuous present management Comments: CNM at bedside. Discussed plan of care in detail. s/p 24 hours of cervical ripening. Pt desires epidural for pain control. Discussed option of nelson balloon placement after epidural placement. Pt agreeable. Plan to start pitocin at that time. Dr. Verde updated.
--- NOTE | 2023-11-30 17:18 | PM.IMHP ---
H&P: [facility] History of Present Illness Date/Time: 11/30/23 17:00 Chief Complaint: Induction of labor Narrative: 1. 38 y.o. at 37 weeks gestation 2. Preeclampsia -no severe features 3. Epilepsy (Last seizure 2011) 4. Hypothyroidism -TSH stable. On Levothyroxine 50mcg 5. LGA fetus -3509 grams at 35 weeks (99%) 6. AMA -low risk genetic testing 7. IVF Review of Systems Review of Systems: All systems reviewed & are unremarkable except as noted in HPI and below PMFSH Past Medical History Medical History (Updated 11/30/23 @ 17:29 by Tammy Roberts CNM) Diarrhea MTHFR gene mutation Obese Right lower quadrant pain Seizures Surgical History Surgical History No significant past surgical history Family History Family History (Updated 11/20/23 @ 13:39 by Leticia Shine RN) Father Hypertension Hypothyroid Mother Hypertension Mother Cerebrovascular accident Grandparent Dementia Social History Social History Smoking status: Never smoker Second hand tobacco smoke exposure: No Do You Feel Safe in your Home?: Yes Lack of Transportation: No Lack of Food: Never True Current Housing: I Have Housing Concerned About Future Housing: No Difficulty Paying Gas/Electric Bills: No Difficulty Paying for Meds: No Currently Unemployed: No Education: Bachelor's Degree Difficulty w/ Childcare or Family Care: No Spiritual care concerns: No Meds Home Medications and Allergies Home Medications Medication Instructions Recorded Confirmed Type aspirin 81 mg capsule 81 mg PO DAILY 10/12/23 11/25/23 History cholecalciferol (vitamin D3) 125 125 mcg PO DAILY 10/12/23 11/25/23 History mcg (5,000 unit) tablet (Vitamin D3) levomefolate calcium 7.5 mg tablet 1 mg PO DAILY 10/12/23 11/25/23 History (L-Methylfolate) levothyroxine 50 mcg tablet 50 mcg PO DAILY 10/12/23 11/25/23 History magnesium 250 mg tablet 250 mg PO DAILY 10/12/23 11/25/23 History mecobalamin (vitamin B12) 1,000 1,000 mcg PO DAILY 10/12/23 11/25/23 History mcg chewable tablet vit no.95-ferrous 1 tablet PO DAILY 10/12/23 11/25/23 History fumarate 28 mg-folic acid 800 mcg tablet () vitamin B complex 1 tablet PO DAILY 10/12/23 11/25/23 History Allergies Allergy/AdvReac Type Severity Reaction Status Date / Time Sulfa (Sulfonamide Allergy Unknown rash Verified 10/23/23 10:19 Antibiotics) Vital Signs Vital Signs - 24 hr 11/29/23 17:46 11/29/23 18:01 11/29/23 18:21 Temperature Pulse Rate 96 86 89 Blood Pressure 139/87 141/82 H 141/86 H Pulse Oximetry Oxygen Delivery 11/29/23 18:31 11/29/23 18:46 11/29/23 19:01 Temperature Pulse Rate 92 96 98 Blood Pressure 137/77 133/79 124/64 Pulse Oximetry Oxygen Delivery 11/29/23 19:16 11/29/23 19:31 11/29/23 19:46 Temperature Pulse Rate 98 105 H 96 Blood Pressure 130/73 130/77 132/86 Pulse Oximetry Oxygen Delivery 11/29/23 20:01 11/29/23 20:16 11/29/23 20:31 Temperature Pulse Rate 102 H 102 H 98 Blood Pressure 141/61 H 146/73 H 144/79 H Pulse Oximetry Oxygen Delivery 11/29/23 20:46 11/29/23 21:01 11/29/23 21:16 Temperature Pulse Rate 106 H 104 H 107 H Blood Pressure 137/77 138/74 125/77 Pulse Oximetry Oxygen Delivery 11/29/23 21:46 11/29/23 21:48 11/29/23 22:01 Temperature Pulse Rate 95 105 H 106 H Blood Pressure 124/102 H 126/81 128/78 Pulse Oximetry Oxygen Delivery 11/29/23 22:15 11/29/23 22:31 11/29/23 22:45 Temperature Pulse Rate 92 96 102 H Blood Pressure 137/87 126/81 145/94 H Pulse Oximetry Oxygen Delivery 11/29/23 23:01 11/29/23 23:13 11/29/23 23:15 Temperature Pulse Rate 99 96 93 Blood Pressure 94/79 L 124/91 H 139/89 Pulse Oximetry Oxygen Delivery 11/29/23
[2023-11-30] MEDS: LACTATED RINGERS 1,000 ML 125 ML IV CONT ×3 (17:28→23:30)
--- NOTE | 2023-11-30 20:10 | P.PNOB_ITS ---
Pain Control Date/time seen: 11/30/23 20:10 Pain control: epidural Comments: CNM intermittently at bedside the last 3 hours. Pelvic Exam Effacement (%): 50 station: -3 Amniotic membrane status: Intact Comments: outer os 1cm but unable to penetrate through internal os (firm). Contractions Monitor mode: External Contraction frequency: 2 (irregular) Contraction pattern: Irregular (some coupling) Contraction phase: Contraction Status status: Category ll Assessment and Plan Assessment: induction ongoing Comments: After epidural placement, attempted to place nelson balloon through cervical os using stylette. Attempted using speculum and ring forceps but this was also unsuccessful. Pt experienced episode of nausea and dizziness. CNM took manual BP was 70s/30s. RESEARCH ASSISTANT PROFESSOR called to bedside and medication given. Pt felt improvement in symptoms and BP returned to WNL. Plan cytotec bucally x 2 doses and then pitocin. Discussed plan of care with Dr. Verde. Discussed plan of care with Robyn and her spouse in detail.
[2023-11-30] MEDS: ACETAMINOPHEN ELIXIR 325 MG/10.15 ML UDC 975 MG PO (20:39)
[2023-12-01] VITALS (377 sets, daily range): BP systolic 86–206; BP diastolic 38–181; PULSE 31–248; TEMP 36.1–38.3; O2SAT 84–100
[2023-12-01] MEDS: miSOPROStol 25 MCG TABLET 50 MCG BUCCAL (00:21)
[2023-12-01] MEDS: OXYTOCIN 30 UNITS/NS 500 ML 30 UNITS/500 ML BAG IV CONT (04:40)
[2023-12-01] MEDS: FAMOTIDINE 20 MG/2 ML VIAL IV PUSH (04:55)
[2023-12-01] MEDS: LACTATED RINGERS 1,000 ML 125 ML IV CONT ×3 (07:29→23:38)
--- NOTE | 2023-12-01 07:55 | PM.OBPNLAB ---
Pain Control Date/time seen: 12/01/23 07:55 Pain control: tolerating well and epidural Comments: CNM called RN for update at 0550. Pitocin was still on 2. Asked to increase to 8 per high dose protocol. CNM at bedside at 0720. Pelvic Exam Dilation (cm): 0 Effacement (%): 75 station: -3 Amniotic membrane status: Intact Contractions Monitor mode: External Contraction pattern: Irregular (some coupling) Contraction phase: Contraction Status status: Category l Assessment and Plan Pitocin rate (mU/min): 10 Assessment: induction ongoing Comments: Pt comfortable with her epidural. VSS WNL to mild range. No severe features. CNM able to penetrate outer os but not internal. Discussed plan of care with Robyn and her spouse. She is agreeable to attempting nelson balloon placement again. Attempted to place nelson balloon using stylette but this was unsuccessful. Pticin increased to 16 per high dose protocol. Plan to increase by 2 units as ctx pattern allows. Dr. Verde updated.
[2023-12-01 07:58] LABS: Glucose Point of Care 75 mg/dl (65-105)
--- NOTE | 2023-12-01 12:08 | PM.OBPNLAB ---
Pain Control Date/time seen: 12/01/23 12:08 Pain control: tolerating well and epidural Pelvic Exam Dilation (cm): 0 Effacement (%): 75 station: -3 Amniotic membrane status: Intact Contractions Monitor mode: External Contraction frequency: 2 (2-4) Contraction pattern: Irregular (some coupling) Contraction phase: Contraction Status status: Category ll Comments: Reassured by moderate variability and accelerations. Assessment and Plan Pitocin rate (mU/min): 20 Assessment: induction ongoing
--- NOTE | 2023-12-01 12:22 | PM.OBPNLAB ---
Pain Control Date/time seen: 12/01/23 12:22 Comments: Sign out given to Dr. Clifford.
--- NOTE | 2023-12-01 12:34 | PM.OBPNLAB ---
Pain Control Date/time seen: 12/01/23 12:34 Comments: Comfortable with epidural. Pelvic Exam Dilation (cm): 1 Effacement (%): 75 station: -3 Comments: AROM with clear fluid. IUPC placed. Contractions Monitor mode: External Contraction frequency: 2 (2-4) Contraction pattern: Irregular (some coupling) Contraction phase: Contraction Status status: Category l Assessment and Plan Pitocin rate (mU/min): 20 Plan: continuous present management
[2023-12-01] MEDS: ONDANSETRON INJ 4 MG/2 ML VIAL IV PUSH (18:32)
[2023-12-01] MEDS: hydrOXYzine HCL 25 MG TABLET PO (19:06)
[2023-12-01] MEDS: ACETAMINOPHEN ELIXIR 325 MG/10.15 ML UDC 975 MG PO (19:16)
[2023-12-01] MEDS: AMPICILLIN 2 GM/NS 100 ML 2 GM/100 ML BAG IVPB (19:41)
[2023-12-01] MEDS: LEVOTHYROXINE SODIUM 50 MCG TABLET PO (19:44)
[2023-12-01] MEDS: AMPICILLIN 1 GM/NS 50 ML 1 GM/50 ML BAG IVPB (23:31)
[2023-12-02] VITALS (55 sets, daily range): BP systolic 73–149; BP diastolic 33–104; PULSE 79–140; RESP 15–22; TEMP 36.4–37.9; O2SAT 96–100
[2023-12-02] MEDS: ACETAMINOPHEN 500 MG TABLET 1000 MG PO (01:09)
[2023-12-02] MEDS: ONDANSETRON INJ 4 MG/2 ML VIAL IV PUSH (01:12)
[2023-12-02] MEDS: FAMOTIDINE 20 MG/2 ML VIAL IV PUSH (01:12)
--- NOTE | 2023-12-02 01:23 | PM.OBPNLAB ---
Pain Control Date/time seen: 12/02/23 01:23 Still comfortable. Tm 103F. BP WNL. NST reactive 160 TOCO: contractions adequate Cervix 4-5/90/-3, unchanged A: Arrest of dilation in labor, maternal fever. P: Offered primary . She understands risks of surgery to include risks of anesthesia, risks of pain, infection, bleeding, blood products, thromboembolic phenomena and damage to adjacent structures such as bowel, bladder, ureters, blood vessels and nerves. She understands all these risks and elects to proceed with surgery.
[2023-12-02] MEDS: AZITHROMYCIN 500 MG/NS 250 ML 500 MG/250 ML BAG 250 MG IVPB (01:27)
[2023-12-02] MEDS: ceFAZolin 2 GM/D5W 50 ML 2 GM/50 ML BAG IVPB (01:27)
[2023-12-02] MEDS: KETOROLAC 15 MG/ML VIAL (*BKC) IV PUSH ×4 (02:00→19:40)
--- NOTE | 2023-12-02 02:30 | P.PCNOB_ITS ---
OB - Delivery Note Procedure Delivery date: 12/02/23 Pre-op diagnosis: Arrest of Dilation, Chorioamniontis and Preeclampsia w/o severe features Post-op Diagnosis: Same Induction method: Per Misoprostol Protocol, Per Pitocin Protocol and Per Cerv radha Protocol Delivery augmentation: Rupture of Membranes Delivery monitor: External FHT, External Uterine and Internal Uterine Procedure Performed: Primary Surgeon: Kit Clifford MD Anesthesia type: Epidural Description of Procedure/Findings: Findings: Normal-appearing uterus, tubes and ovaries Techniques: The patient was taken to the operating room where she was prepared and draped in the usual sterile fashion in dorsal supine position with a leftward tilt. She received cefazolin preoperatively. Spinal anesthesia was found to be adequate. A Pfannenstiel skin incision was made and carried through to the underlying layer of the fascia. The fascia was incised in the midline and the incision was extended laterally. The fascia was dissected free of the underlying rectus muscles. The rectus muscles were in the midline. The peritoneum was identified, tented up and entered sharply. The peritoneal incision was extended superiorly and inferiorly with good visualization of the bladder. The bladder blade was placed. The vesicouterine peritoneum was identified, tented up and entered sharply. The incision was extended laterally and the bladder flap was developed. The bladder blade was replaced. The uterus was then incised sharply in a transverse fashion along the lower uterine segment. The incision was extended laterally. The infant's head was delivered atraumatically to the sterile field, followed by the body. The nose and mouth were bulb suctioned. After a delay, the cord was clamped and cut. The was handed off the field. Cord blood was collected. The placenta was removed manually and was passed off the field. The uterus was exteriorized and cleared of all clots and debris. The uterine incision was reapproximated using 0 Monocryl in a running, locked fashion. A second layer of the same suture was run. Excellent hemostasis resulted as did excellent reapproximation of the normal anatomy. The uterus was returned the abdomen. The pelvis was irrigated copiously with warmed normal saline. Hemaderm was applied to the bladder flap. Rigorous hemostasis was assured. The fascial layer was reapproximated using 0 Vicryl in a running fashion. The skin was closed with a running, subcuticular stitch of 4 0 Vicryl. Dermaflex was applied externally. Sponge, lap, needle and instrument counts were correct. The patient was taken to the recovery room in stable condition. The infant went to the nursery in stable condition. I was present and scrubbed the entire procedure. Specimen: Yes (Cord blood, placenta) Estimated Blood Loss: 735 Urine Output: 300 Drains: Yes ([place]) Packing: No Pathology: Yes (Placenta, cord blood) Complications: None Condition: Stable Disposition: PACU [place] Baby Date of : 12/02/23 Time of : 01:50 Gestational Age by Date: 37 Infant gender: Male Weight (pounds): 7 Weight (ounces): 15 presentation: vertex Placenta delivery description: Manual Removal and Normal Configuration Cord Vessel Description: 3 Vessels and Delayed Cord Clamping score one minute: 8 score five minutes: 9
--- NOTE | 2023-12-02 02:36 | PM.OBDSVD ---
DS: Admitting Diagnosis Discharge Date 12/06/23 <Kit Clifford MD - Last Filed: 12/12/23 08:43> 12/05/23 <Teena Verde MD - Last Filed: 12/05/23 07:12> Admitting Diagnosis IUP at 37 weeks Preeclampsia <Kit Clifford MD - Last Filed: 12/12/23 08:43> DS: Discharge Diagnosis Discharge Diagnosis (1) Preeclampsia: Qualifiers: Trimester: third trimester Qualified Code(s): O14.93 - Unspecified pre-eclampsia, third trimester <Kit Clifford MD - Last Filed: 12/12/23 08:43> Code(s): O14.90 - Unspecified pre-eclampsia, unspecified trimester <Kit Clifford MD - Last Filed: 12/12/23 08:43> Status: Acute <Kit Clifford MD - Last Filed: 12/12/23 08:43> (2) delivery delivered: Code(s): O82 - Encounter for delivery without indication <Kit Clifford MD - Last Filed: 12/12/23 08:43> Status: Acute <Kit Clifford MD - Last Filed: 12/12/23 08:43> (3) Chorioamnionitis, delivered, current hospitalization: Code(s): O41.1290 - Chorioamnionitis, unspecified trimester, not applicable or unspecified <Kit Clifford MD - Last Filed: 12/12/23 08:43> Status: Acute <Kit Clifford MD - Last Filed: 12/12/23 08:43> OB - DS: Summary OB Procedures : NST, PIH Mgmt and Ultrasound <Kit Clifford MD - Last Filed: 12/12/23 08:43> OB Procedures Intrapartum: <Kit Clifford MD - Last Filed: 12/12/23 08:43> OB Procedures: : Antibiotics <Kit Clifford MD - Last Filed: 12/12/23 08:43> Peripartum Data Infant Delivery Method: Section <Teena Verde MD - Last Filed: 12/05/23 07:12> Procedures: Procedures Operation Date: 12/02/23 00:25 <No data on this case meets the specified criteria> <Kit Clifford MD - Last Filed: 12/12/23 08:43> complications: none <Teena Verde MD - Last Filed: 12/05/23 07:12> Status at Discharge Functional status at discharge: independent ambulation <Teena Verde MD - Last Filed: 12/05/23 07:12> Overall status at discharge: patient is progressing back to baseline <Teena Verde MD - Last Filed: 12/05/23 07:12> Time Spent with Patient Time attestation: Total time spent providing and/or coordinating discharge services: <Kit Clifford MD - Last Filed: 12/12/23 08:43> DS: Data Data Completed and Pending Labs on day of discharge: Labs from last 24 hours 12/01/23 05:02 POC Capillary Glucose 75 <Kit Clifford MD - Last Filed: 12/12/23 08:43> Discharge Plan Discharge Attending physician on discharge: Teena Verde <Kit Clifford MD - Last Filed: 12/12/23 08:43> Teena Verde <Teena Verde MD - Last Filed: 12/05/23 07:12> Consulting providers: Kit Clifford; Tamia Panchal; Nelson Rodriguez <Kit Clifford MD - Last Filed: 12/12/23 08:43> Discharging Clinician: Tammy Roberts <Kit Clifford MD - Last Filed: 12/12/23 08:43> Tammy Roberts <Teena Verde MD - Last Filed: 12/05/23 07:12> Anticipated Discharge Date/Time: 12/06/23 08:29 <Kit Clifford MD - Last Filed: 12/12/23 08:43> Patient Disposition: Home, Self-Care <Kit Clifford MD - Last Filed: 12/12/23 08:43> Activity: may shower, may drive after 2 weeks and pelvic rest <Kit Clifford MD - Last Filed: 12/12/23 08:43> may shower, may drive after 2 weeks and pelvic rest <Teena Verde MD - Last Filed: 12/05/23 07:12> Diet: regular <Kit Clifford MD - Last Filed: 12/12/23 08:43> regular <Teena Verde MD - Last Filed: 12/05/23 07:12> Wound Care Instructions: incision open to air <Kit Clifford MD - Last Filed: 12/12/23 08:43> incision open to air <Robin
[2023-12-02] MEDS: HYDROmorphone HCL INJ (*CRX) 1 MG/ML SYR 0.5 MG IV PUSH (02:47)
[2023-12-02] MEDS: OXYTOCIN 30 UNITS/NS 500 ML 30 UNITS/500 ML BAG 125 UNITS IV CONT (04:47)
[2023-12-02] MEDS: AMPICILLIN SULB 3 GM/NS 100 ML 3 GM/100 ML VIAL IVPB ×3 (08:04→19:41)
[2023-12-02] MEDS: DOCUSATE SODIUM 100 MG CAPSULE PO ×2 (08:04→17:51)
[2023-12-02] MEDS: MULTIVIT/MIN/PREN/FOL AC/IRON TABLET 1 TAB PO (08:04)
[2023-12-02] MEDS: LIDOCAINE 5% PATCH 1 PATCH TRANSDERM (08:04)
[2023-12-02] MEDS: SIMETHICONE 80 MG TAB.CHEW PO ×3 (08:05→17:51)
[2023-12-02] MEDS: ACETAMINOPHEN 325 MG TABLET 650 MG PO ×3 (08:05→19:40)
[2023-12-02] MEDS: LEVOTHYROXINE SODIUM 50 MCG TABLET PO (08:28)
--- NOTE | 2023-12-02 10:00 | PC.NURSE ---
Mother verbalizes she is able to independently latch [with nipple shield in place] with appropriate positioning and alignment. Education provided on positioning the nipple shield correctly onto the nipple. She denies any nipple discomfort and is responsively . is being supplemented after feedings due to a low blood sugar taken during the night by night RN. Handouts were provided on pumping, storing breast milk and hand expression. Breast pump education completed with mother and sized for correct flange size. Breast pump from home was at bedside so I showed mother how to put together her personal pump. Mother declines any additional assistance or education at this time. Mother is encouraged to call for assistance if her infant doesn?t latch, pain with latching, questions or concerns about and/or pumping. Mother voiced understanding of information shared along with the mom/baby guide for an additional resource. Reported to the Primary RN.
--- NOTE | 2023-12-02 20:41 | PC.NURSE ---
2014- lidocaine patch removed at this time.
[2023-12-02] MEDS: HYDROcodone/acetaminophen (*CRX) 5-325 MG TABLET 1 TAB PO (22:15)
--- NOTE | 2023-12-02 22:48 | PC.NURSE ---
2200- Introduced myself to pt as I will be taking over her care now. explained that FC needs to be removed now, and we need to get up oob and walking. Pt states she is having 7-10 pain in abdomen and incision. norco 5mg given for breakthrough pain. Explained that Tylenol and Motrin will be again at 0130. will remove FC in one hour after [place] 5mg given. Pt agreed.
[2023-12-03] MEDS: ACETAMINOPHEN 325 MG TABLET 650 MG PO ×4 (01:40→19:23)
[2023-12-03] MEDS: KETOROLAC 15 MG/ML VIAL (*BKC) IV PUSH (01:40)
[2023-12-03 04:53] LABS: Basophils Percent Auto 0.2 % (0.2-1.2); Eosinophils Absolute Auto 0.1 K/mm3 (0-0.3); Eosinophils Percent Auto 0.9 % (0-4.4); Hemoglobin 8.7 g/dL (12.0-15.0); Immature Granulocyte Absolute 0.12 K/mm3 (0.00-0.031); Immature Granulocyte Percent A 0.9 % (0-0.5); Lymphocytes Percent Auto 13.4 % (18.3-44.2); Mean Corpuscular HGB Conc 32.2 g/dl (32-36); Mean Corpuscular Hemoglobin 30.1 pg (26-34); Mean Corpuscular Volume 93.4 fl (80-100); Monocytes Absolute Auto 1.1 K/mm3 (0.1-0.6); Monocytes Percent Auto 8.9 % (2.6-8.5); Neutrophils Absolute Auto 9.6 K/mm3 (1.3-6.7); Neutrophils Percent Auto 75.7 % (45.5-73.1); Platelet Count Result 181 k/mm3 (150-375); Red Blood Count 2.89 M/mm3 (4.2-5.4); Red Cell Distribution Width 14.3 % (11.5-14.5); White Blood Count 12.7 K/mm3 (4.5-10.0)
[2023-12-03 05:40] VITALS: BP 114/74; PULSE 83; RESP 18; TEMP 36.7; O2SAT 98
--- NOTE | 2023-12-03 05:41 | PC.NURSE ---
0515- pt up oob with assitance of this nurse and pts . Pt reluctant to stand up straight, however did with encouragement. Ambulated to bathroom- voided 400 and 1 small bm. Pericare given by this nurse. Pt then ambulated with assistance to chair. Pt stated pain is well controlled at this time. Pt to sit up for at least 1/2 hour, then may lay back down. Pt agreed.
[2023-12-03] MEDS: HYDROcodone/acetaminophen (*CRX) 10-325 MG TABLET 1 TAB PO ×3 (06:54→22:10)
[2023-12-03 06:55] VITALS: BP 122/74; PULSE 106; RESP 16; TEMP 36.4
[2023-12-03] MEDS: POLYSACCHARIDE IRON COMPLEX 150 MG CAPSULE PO ×2 (07:26→17:44)
[2023-12-03] MEDS: DOCUSATE SODIUM 100 MG CAPSULE PO ×2 (07:26→17:44)
[2023-12-03] MEDS: IBUPROFEN 600 MG TABLET PO ×3 (07:26→19:23)
[2023-12-03] MEDS: SIMETHICONE 80 MG TAB.CHEW PO ×3 (07:26→17:44)
[2023-12-03] MEDS: MULTIVIT/MIN/PREN/FOL AC/IRON TABLET 1 TAB PO (07:26)
--- NOTE | 2023-12-03 08:50 | WPDANLDPN2 ---
Anes-Prog Note L&D Date/Time: 12/03/23 08:50 Comfortable throughout: section Neuraxial method: epidural Epidural/Spinal procedure site: clean & non-tender Neuro status: Neuro function grossly intact. Cardiovascular status: normal Respiratory status: normal Airway patency: baseline Mental status: baseline Post-Op hydration status: normal Vital Signs: Last Vital Signs Temp 36.7 C 12/03/23 05:40 Pulse 83 12/03/23 05:40 Resp 18 12/03/23 05:40 BP 114/74 12/03/23 05:40 Pulse Ox 98 12/03/23 05:40 O2 Del Method Room Air 12/02/23 16:00 Pain score (VAS): 1 I/O: Intake & Output 12/02/23 12/03/23 12/03/23 23:59 07:59 15:59 Intake Total 3000 Output Total 1300 401 Balance 1700 -401 Patient feedback: Patient satisfied with anesthetic care.
--- NOTE | 2023-12-03 08:51 | WPDANLDNPN2 ---
Anes-Prog Note L&D-Neuraxial Date/Time: 12/03/23 08:51 Neuraxial medications: epidural PF morphine Opiod-related complaints: none Patient feedback: Patient satisfied with post-operative pain management.
--- NOTE | 2023-12-03 12:01 | PM.OBPNVD ---
OB - PN: Subj Subjective Date/time seen: 12/03/23 12:01 Narrative: Pain OK. Tolerating diet. Would like circumcision for son. OB - PN: Obj Data Labs 12/03/23 04:32 Labs: Laboratory Results - last 24 hr 12/03/23 04:32 WBC 12.7 H RBC 2.89 L Hgb 8.7 L D Hct 27.0 L MCV 93.4 MCH 30.1 MCHC 32.2 RDW 14.3 Plt Count 181 MPV 10.0 Immature Gran % (Auto) 0.9 H Neut % (Auto) 75.7 H Lymph % (Auto) 13.4 L [place] % (Auto) 8.9 H Eos % (Auto) 0.9 Baso % (Auto) 0.2 Lymph # (Auto) 1.70 [place] # (Auto) 1.1 H Eos # (Auto) 0.1 Baso # (Auto) 0.0 Abs Immat Gran (auto) 0.12 H Absolute Neuts (auto) 9.6 H Absolute Nucleated RBC 0.000 Nucleated RBC % 0.0 OB - PN A/P Plan Comments: A: POD#1, doing well. Preeclampsia with good diuresis, not requiring bp meds. Chorioamnionitis, s/p antibiotics. P: Routine care. Reviewed circ. Exam Narrative: AVSS I/O OK ABD soft, nontender, fundus firm. Incision c/d/i. EXT nontender
[2023-12-03 19:30] VITALS: BP 116/70; PULSE 78; RESP 18; TEMP 36.8
[2023-12-04 00:20] VITALS: BP 119/69; PULSE 80; RESP 16; TEMP 36.7
[2023-12-04] MEDS: ACETAMINOPHEN 325 MG TABLET 650 MG PO ×5 (01:38→23:57)
[2023-12-04] MEDS: IBUPROFEN 600 MG TABLET PO ×5 (01:38→23:57)
--- NOTE | 2023-12-04 07:01 | PC.NURSE ---
0658- Intake and output flowsheet was marked completed for day shift. This RN placed hat in pts toilet and instructed her to measure her voids, pt agreed and stated she has had two voids during senior software developer. Pt knows that we are to be measuring her voids. This RN endorsed to day RN Nita.
[2023-12-04] MEDS: LEVOTHYROXINE SODIUM 50 MCG TABLET PO (07:19)
[2023-12-04 08:00] VITALS: BP 118/68; PULSE 82; RESP 16; TEMP 36.6; O2SAT 100
--- NOTE | 2023-12-04 09:05 | PC.NURSE ---
Mother called this RN to room to assist with latching . Infant was sleepy upon entering room - showed parents how to wake a sleepy baby. Handout given for waking a sleepy baby. was being supplemented 50cc of similac post- at each feed. This RN will confirm with TYESHA Mahmood and plant operator helper regarding the amount of supplementation being given post-. Infant would not wake to breastfeed but would show interest in the bottle. Similac given to at this time. Mother plans to pump at this time.
--- NOTE | 2023-12-04 09:15 | PC.NURSE ---
This RN verified amount of supplementation per feed. Supplementation amount should be 15cc after each attempt. This information was given to parents. This RN will assist with next feeding.
[2023-12-04] MEDS: SIMETHICONE 80 MG TAB.CHEW PO ×3 (09:43→16:04)
[2023-12-04] MEDS: POLYSACCHARIDE IRON COMPLEX 150 MG CAPSULE PO ×2 (09:43→16:05)
[2023-12-04] MEDS: DOCUSATE SODIUM 100 MG CAPSULE PO ×2 (09:44→16:05)
[2023-12-04] MEDS: MULTIVIT/MIN/PREN/FOL AC/IRON TABLET 1 TAB PO (09:44)
[2023-12-04] MEDS: HYDROcodone/acetaminophen (*CRX) 5-325 MG TABLET 1 TAB PO ×3 (09:45→22:55)
[2023-12-04 12:01] VITALS: BP 132/72; PULSE 98; RESP 16; TEMP 36.8; O2SAT 99
--- NOTE | 2023-12-04 15:03 | P.PNOB_ITS ---
OB - PN: Subj Subjective Date/time seen: 12/04/23 15:03 Patient comments: no complaints, pain well controlled, incisional pain and tolerating diet baby status: doing well OB - PN: Obj Data Labs 12/03/23 04:32 OB - PN A/P Assessment and Plan (1) Preeclampsia: Qualifiers: Trimester: third trimester Qualified Code(s): O14.93 - Unspecified pre- eclampsia, third trimester Code(s): O14.90 - Unspecified pre-eclampsia, unspecified trimester Status: Acute Assessment and Plan: BP's good. No symptoms (2) Chorioamnionitis, delivered, current hospitalization: Code(s): O41.1290 - Chorioamnionitis, unspecified trimester, not applicable or unspecified Status: Acute Assessment and Plan: afebrile >24 hours Plan day: 2 Plan: routine care Time Spent With Patient Time: Total time spent is greater than 50% in coordination of care (as documented) at patient's floor/unit and/or counseling patient: Exam Narrative: inc c/d/i : Bimanual exam- vagina & uterus: other (Uterus firm, nt @U)
[2023-12-04 16:00] VITALS: BP 136/89
[2023-12-04 20:00] VITALS: BP 116/72; PULSE 87; RESP 20; TEMP 36.7; O2SAT 97
[2023-12-04 23:00] VITALS: BP 136/88
[2023-12-05 04:55] VITALS: BP 111/70
[2023-12-05] MEDS: ACETAMINOPHEN 325 MG TABLET 650 MG PO ×3 (06:00→17:31)
[2023-12-05] MEDS: IBUPROFEN 600 MG TABLET PO ×3 (06:00→17:30)
[2023-12-05] MEDS: LEVOTHYROXINE SODIUM 50 MCG TABLET PO (06:02)
--- NOTE | 2023-12-05 07:10 | P.PNOB_ITS ---
OB - PN: Subj Subjective Date/time seen: 12/05/23 07:10 Patient comments: no complaints and pain well controlled baby status: doing well OB - PN: Obj Data Labs 12/03/23 04:32 OB - PN A/P Assessment and Plan (1) Preeclampsia: Qualifiers: Trimester: third trimester Qualified Code(s): O14.93 - Unspecified pre- eclampsia, third trimester Code(s): O14.90 - Unspecified pre-eclampsia, unspecified trimester Status: Acute Assessment and Plan: vss Plan day: 3 Plan: routine care and discharge home Time Spent With Patient Time: Total time spent is greater than 50% in coordination of care (as documented) at patient's floor/unit and/or counseling patient: Exam Narrative: inc c/d/i : Bimanual exam- vagina & uterus: other (Uterus firm, nt @U)
[2023-12-05 07:35] VITALS: BP 122/75; PULSE 80; RESP 16; TEMP 36.9; O2SAT 99
[2023-12-05] MEDS: SIMETHICONE 80 MG TAB.CHEW PO ×3 (08:15→17:30)
[2023-12-05] MEDS: MULTIVIT/MIN/PREN/FOL AC/IRON TABLET 1 TAB PO (08:16)
[2023-12-05] MEDS: DOCUSATE SODIUM 100 MG CAPSULE PO ×2 (08:16→17:30)
[2023-12-05] MEDS: POLYSACCHARIDE IRON COMPLEX 150 MG CAPSULE PO ×2 (08:16→17:30)
--- NOTE | 2023-12-05 09:01 | PC.NURSE ---
Patient viewed the discharge video Mother & Baby Care, The First Two Weeks . Patient was given the opportunity and encouraged to ask questions. Patient verbalized understanding of information shared and has been given the mother/baby guide for home reference.
[2023-12-05 12:39] VITALS: BP 133/84; PULSE 89; RESP 16; TEMP 37.2; O2SAT 100
[2023-12-05 16:15] VITALS: BP 124/81
[2023-12-05] MEDS: WITCH HAZEL 40 PADS 1 PAD (17:30)
[2023-12-05 19:30] VITALS: BP 136/90; PULSE 93; RESP 20; TEMP 36.7; O2SAT 97
[2023-12-06] MEDS: ACETAMINOPHEN 325 MG TABLET 650 MG PO ×3 (00:30→13:01)
[2023-12-06] MEDS: IBUPROFEN 600 MG TABLET PO ×3 (00:30→13:01)
[2023-12-06] MEDS: LEVOTHYROXINE SODIUM 50 MCG TABLET PO (06:56)
[2023-12-06 07:20] VITALS: BP 133/85; PULSE 84; RESP 16; TEMP 36.6; O2SAT 99
--- NOTE | 2023-12-06 08:24 | P.PNOB_ITS ---
OB - PN: Subj Subjective Date/time seen: 12/06/23 0750 Interval history: POD 4 from primary LTCS. Doing well. Ambulating without difficulty. Tolerating po food and fluid. Passing flatus. Pain well controlled with po meds. Breast pumping, milk coming in Patient comments: no complaints and pain well controlled [place] baby status: doing well, nursing well and bottle feeding well [place] feeding status: breast and bottle feeding OB - PN: Obj Data Labs 12/03/23 04:32 OB - PN A/P Assessment and Plan (1) delivery delivered: Code(s): O82 - Encounter for delivery without indication Status: Acute (2) Preeclampsia: Qualifiers: Trimester: third trimester Qualified Code(s): O14.93 - Unspecified pre- eclampsia, third trimester Code(s): O14.90 - Unspecified pre-eclampsia, unspecified trimester Status: Acute (3) Hypothyroidism: Qualifiers: Hypothyroidism type: unspecified Qualified Code(s): E03.9 - Hypothyroidism, unspecified Code(s): E03.9 - Hypothyroidism, unspecified Status: Acute Plan day: 4 Plan: discharge home Time Spent With Patient Time: Total time spent is greater than 50% in coordination of care (as documented) at patient's floor/unit and/or counseling patient: Review of Systems Review of Systems: All systems reviewed & are unremarkable except as noted in HPI and below Exam Const: General: cooperative, no acute distress and awake Orientation/consciousness: patient oriented x3 Limitations: no limitations Resp: Effort & Inspection: normal respiratory effort and able to speak in complete sentences Auscultation: clear to auscultation bilaterally Cardio: Rate: regular rate Peripheral pulses: Peripheral pulses 2+ throughout GI: Inspection: normal to inspection Auscultation: normal bowel sounds : General: Yes bladder normal to palpation Speculum Exam - Vagina: vaginal bleeding Bimanual exam- vagina & uterus: bladder normal to palpation OB/external & speculum: vaginal bleeding Other: Fundus firm Skin: General skin exam: normal color Other: Incision C/D/I Neuro: General: patient oriented x3 Cognition (Neuro): normal cognition Speech: normal speech Extrem: General: normal to inspection Psych: Appearance: grossly normal Mental Status: mental status grossly n ormal Speech and movement: Normal speech and movement present Affect: normal affect Attitude: cooperative Thought process: Normal thought process present
--- NOTE | 2023-12-06 08:30 | PC.NURSE ---
This RN at bedside with Tammy Roberts CNM discussing plan of care. Dr. Hewitt has given orders for to breastfeed for 10 minutes (at most) and supplement 50ml of either breastmilk or formula every 3 hours. Mother will be feeding infant 24k/elba formula for supplementation along with her pumped breastmilk. Although mother is tearful, she states that she is okay with this plan of care and that she just wants what is best for her baby. Mother has a misunderstanding with education staff provided regarding attempts and burning calories and thought that she should hault . Explained to mother that after 10-15 minutes of unsuccessful latching/nursing that is exhausting himself and burning calories but when infant is at breast there are calories that are going in, so she does not need to hault but just be mindful of how long infant is attempting feeds. Reiterated that she needs to pump after each feeding to maintain and protect her milk supply. Mother understands all information provided and is relieved to have clarification. This RN will update mother with any changes and print instructions to place on her board so that all staff is aware of feeding plan. Mother will call this RN for any questions or concerns today.
[2023-12-06] MEDS: DOCUSATE SODIUM 100 MG CAPSULE PO (09:05)
[2023-12-06] MEDS: POLYSACCHARIDE IRON COMPLEX 150 MG CAPSULE PO (09:05)
[2023-12-06] MEDS: MULTIVIT/MIN/PREN/FOL AC/IRON TABLET 1 TAB PO (09:05)
[2023-12-06] MEDS: SIMETHICONE 80 MG TAB.CHEW PO ×2 (09:08→13:01)
[2023-12-06] MEDS: hydrOXYzine HCL 25 MG TABLET PO (10:38)
[2023-12-07 10:35] VITALS: BP 135/85; PULSE 79; RESP 18; TEMP 36.3; O2SAT 97
== END 2023-12-06 15:30 | disposition home or self-care (01) | DRG 786 ==
LOC: ANHLDR 12-02 02:38 → ANHOB2 12-02 05:43
PROVIDERS: Obstetrics & Gynecology; Admitting Provider Advanced Practice Midwife; Referring Provider Advanced Practice Midwife; Visit Provider Obstetrics & Gynecology Gynecology
PROC: 10D00Z1 Extraction of Products of Conception, Low, Open Approach (ICD-10-PCS; CPT 59514; principal; 2023-12-02 00:25)
DX: O62.0 Primary inadequate contractions (principal); O41.1230 Chorioamnionitis, third trimester, not applicable or unspecified; O75.2 Pyrexia during labor, not elsewhere classified; O99.354 Diseases of the nervous system complicating childbirth; E72.12 Methylenetetrahydrofolate reductase deficiency; O14.04 Mild to moderate pre-eclampsia, complicating childbirth; G40.909 Epilepsy, unspecified, not intractable, without status epilepticus; O99.284 Endocrine, nutritional and metabolic diseases complicating childbirth; E03.9 Hypothyroidism, unspecified; O36.63X0 Maternal care for excessive fetal growth, third trimester, not applicable or unspecified; Z3A.37 37 weeks gestation of pregnancy; Z37.0 Single live birth
CPT/HCPCS: 36415; 82948; 85025; 86592; 86703; 86850; 86900; 86901; 88307; A9270; G0432; J0290; J0295; J0456; J0690; J1170; J1885; J2274; J2371; J2405; J2590; J2795; J3010; J7120